=== PATIENT | female | born 1970 | race Caucasian/White ===

== ENCOUNTER → 2016-06-16 | Outpatient (CLI) | payer OTHER | LOC: FIMAGING 12:05 | DX: Z12.31 Encounter for screening mammogram for malignant neoplasm of breast (principal); Z80.3 Family history of malignant neoplasm of breast | CPT/HCPCS: G0202 ==

== ENCOUNTER → 2016-10-03 | Outpatient (CLI) | payer OTHER | LOC: FIMAGING 10:31 | PROVIDERS: ATTEND Physician Assistant | DX: Z12.39 Encounter for other screening for malignant neoplasm of breast (principal); N63 Unspecified lump in breast ==

== ENCOUNTER → 2017-11-27 | Outpatient (CLI) | payer OTHER | LOC: FIMAGING 09:32 | PROVIDERS: ATTEND Family Medicine | DX: Z12.31 Encounter for screening mammogram for malignant neoplasm of breast (principal) ==